=== PATIENT | female | born 1965 | race African-American/Black ===

== ENCOUNTER → 2016-09-22 | Outpatient (CLI) | payer OTHER ==
[~2016-09-22] MED LIST: ELIMITE60 GM TOP
--- NOTE | ~2016-09-22 | US98 ---
[facility] A Service of [facility] RADIOLOGY TEXT RESULTS PATIENT: BERTHA COTO LOCATION: [facility] : 67 UNIT #: [id number] AGE: [address]: PAULETTE FRAZIER APRN SEX: F ORDER DR: [id number] [facility] [address] [place], [place] [address] [id number] O MR#: [id number] Acc #: [id number] NAME: BERTHA COTO : 1965 SEX: F STUDY DATE/TIME: 09/22/2016 11:35 UNIT: [facility] ROOM: STUDY DESCRIPTION: US Pelvic Non-OB Complete Attending Physician: Paulette Frazier Aprn Referring Physician: Paulette Frazier Aprn Ordering Physician: Paulette Frazier Aprn Primary Care Physician: Paulette Frazier Aprn MEDICAL IMAGING REPORT This report is preliminary unless electronic signature is present EXAM Pelvic ultrasound INDICATIONS Pelvic pain for the past year PROCEDURE Heller-scale and Doppler imaging via transabdominal and transvaginal approach. COMPARISON None FINDINGS Uterus is anteverted and measures 5.6 x 2.9 x 4.1 cm. The uterus is retroverted on transvaginal images. Endometrium measures approximately 2 mm in thickness. The right ovary measures 1.2 x 3.0 x 1.9 cm. Tubular anechoic structure in the left adnexa. Left ovary measures 1.90 x 2.7 x 1.4 cm. The ovaries show detectable flow. IMPRESSION 1. Retroverted uterus. 2. Endometrium within normal limits. 3. Left adnexal tubular structure, most in keeping with hydrosalpinx. Dictated by... John Zuniga M.D. THIS IS AN ELECTRONICALLY VERIFIED REPORT John Zuniga M.D. at 09/23/2016 7:08 AM [facility] A Service of [facility] RADIOLOGY TEXT RESULTS PATIENT: BERTHA COTO LOCATION: [facility] : 67 UNIT #: [id number] AGE: [address]: PAULETTE FRAZIER APRN SEX: F ORDER DR: MEY/paolo TD: 09/22/2016 19:57 JOB #: [id number] MEDICAL IMAGING REPORT Page 1 of 1 COPY
== END | disposition home or self-care (01) ==
LOC: CWCC 09-18 10:30
DX: R10.2 Pelvic and perineal pain (principal); N85.4 Malposition of uterus; N70.11 Chronic salpingitis
CPT/HCPCS: 76830; 76856